=== PATIENT | female | born 1985 | race Two or more races ===

== ENCOUNTER 2025-05-25 05:59 | Emergency (ER) | payer SELFPAY ==
[2025-05-25] MEDS: Ondansetron 4 MG/2 ML SDV IVPUSH ONE (06:19)
[2025-05-25 06:30] LABS: BASOPHILS ABSOLUTE AUTO 0.1 K/mm3 (0.0-0.2); BASOPHILS PERCENT AUTO 0.6 % (0.0-1.0); EOSINOPHILS ABSOLUTE AUTO 0.3 K/mm3 (0.0-0.4); EOSINOPHILS PERCENT AUTO 2.8 % (0.0-6.0); IMMATURE GRAN ABSOLUTE AUTO 0.05 K/mm3 (0.00-0.05); IMMATURE GRAN PERCENT AUTO 0.5 % (0.0-0.4); LYMPHOCYTES ABSOLUTE AUTO 4.3 K/mm3 (1.0-4.8); LYMPHOCYTES PERCENT AUTO 38.7 % (24.0-44.0); MEAN PLATELET VOLUME 9.8 fl (9.4-12.3); MONOCYTES ABSOLUTE AUTO 0.5 K/mm3 (0.0-0.8); MONOCYTES PERCENT AUTO 4.9 % (0.0-8.0); NEUTROPHILS ABSOLUTE AUTO 5.8 K/mm3 (1.8-7.7); NEUTROPHILS PERCENT AUTO 52.5 % (41.0-71.0); NRBC ABSOLUTE 0.00 (0.00-0.02); NRBC PERCENT 0.0 % (0.0-0.2); PLATELET COUNT,PLT 404 K/mm3 (150-400); RED BLOOD CELL COUNT 5.10 M/mm3 (4.10-5.30); WHITE BLOOD CELL COUNT,WBC 11.02 K/mm3 (3.9-11.3)
[2025-05-25 06:39] LABS: A/G RATIO 1.1 (1-2); ALANINE AMINOTRANSFERASE,ALT 425 U/L (14-59); ASPARTATE AMNIOTRANSFERASE,AST 255 U/L (15-37); BILIRUBIN TOTAL 0.6 mg/dL (0.2-1.0); BLOOD UREA NITROGEN,BUN 12 mg/dL (7-18); CARBON DIOXIDE,CO2 26 mEq/L (21-32); CHLORIDE,CL 102 mEq/L (98-107); CREATININE 0.8 mg/dL (0.55-1.02); ESTIMATED GFR 97 mL/min (>60); GLUCOSE RANDOM 235 mg/dL (70-99); POTASSIUM,K 4.0 mEq/L (3.5-5.1); PROTEIN TOTAL,TP 8.4 g/dl (6.4-8.2); SODIUM,NA 139 mEq/L (136-145)
[2025-05-25] MEDS: Iopamidol 612 MG/ML 100 ML Bottle IVPUSH ONE (07:23)
[2025-05-25] MEDS: Sodium Chloride 0.9% 10 ML Syringe FLUSH PRN (07:24)
[2025-05-25 07:57] LABS: APPEARANCE,URINE CLEAR (Clear); GLUCOSE,URINE TRACE (Negative); OCCULT BLOOD,URINE 3+ (Negative)
[2025-05-25 08:04] LABS: SQUAMOUS EPITHELIAL CELLS,UR 0-5 /hpf (0-5)
[2025-05-25] MEDS: Ketorolac 30 MG/ML SDV IVPUSH ONE (09:32)
== END 2025-05-25 09:45 | disposition home or self-care (01) ==
LOC: JD.ED 05:59
DX: N13.2 Hydronephrosis with renal and ureteral calculous obstruction (principal); R94.5 Abnormal results of liver function studies; R73.9 Hyperglycemia, unspecified; Z91.040 Latex allergy status
CPT/HCPCS: 36415; 74177; 80053; 81001; 83690; 84703; 85025; 96374; 96375; 96376; 99284; J1171; J1885; J2405; Q9967